=== PATIENT | female | born 1960 | race Caucasian/White ===

== ENCOUNTER 2022-05-19 13:55 | Outpatient (CLI) | payer BC | END 2022-05-19 13:56 | disposition home or self-care (01) | LOC: CSHRAD 13:55 | PROVIDERS: ATTEND Internal Medicine | DX: M79.672 Pain in left foot (principal); S92.355A Nondisplaced fracture of fifth metatarsal bone, left foot, initial encounter for closed fracture ==

== ENCOUNTER 2022-06-02 13:01 | Outpatient (CLI) | payer BC ==
[~2022-06-02 13:01] MED LIST: Iopamidol 300 61% 100 ML VIAL FS ONE
== END 2022-06-02 13:02 | disposition home or self-care (01) ==
LOC: CSHCT 13:01
PROVIDERS: ATTEND Internal Medicine
DX: R10.32 Left lower quadrant pain (principal); K63.9 Disease of intestine, unspecified; K57.30 Diverticulosis of large intestine without perforation or abscess without bleeding; K44.9 Diaphragmatic hernia without obstruction or gangrene; K43.9 Ventral hernia without obstruction or gangrene; Z90.49 Acquired absence of other specified parts of digestive tract
CPT/HCPCS: 74177; 82565